=== PATIENT | female | born 1940 | race African-American/Black ===

== ENCOUNTER 2020-05-21 16:40 | Inpatient (IN) | payer OTHER, SELFPAY ==
[~2020-05-21] VITALS: Ht 162.6 cm; Wt 113.4 kg
[2020-05-21 16:46] VITALS: BP 153/113
[2020-05-21 17:27] LABS: BASOPHILS % (AUTO) 0.6 % (0.0-2.0); EOSINOPHILS # (AUTO) 0.1 K/uL (0-0.4); EOSINOPHILS % (AUTO) 0.9 % (0.0-4.0); HEMATOCRIT 38.5 % (36-48); HEMOGLOBIN 12.5 g/dL (12.0-16.0); LYMPHOCYTES # (AUTO) 1.6 K/uL (2.5-16.5); LYMPHOCYTES % (AUTO) 25.3 % (20.5-51.1); MEAN CORPUSCULAR HEMOGLOBIN 27 pg (27-31); MEAN CORPUSCULAR HGB CONC 33 g/dL (33-37); MEAN CORPUSCULAR VOLUME 83.4 fL (80-94); MONOCYTES # (AUTO) 0.4 K/uL (0.8-1.0); MONOCYTES % (AUTO) 6.8 % (1.7-9.3); NEUTROPHILS # (AUTO) 4.1 K/uL (1.8-7.7); NEUTROPHILS % (AUTO) 66.4 % (42.2-75.2); PLATELET COUNT (AUTO) 200 K/uL (140-450); RED BLOOD CELL COUNT(AUTO) 4.61 MIL/uL (4.20-5.40); RED CELL DISTRIBUTION WIDTH 15.8 % (11.6-13.7); WHITE BLOOD COUNT (AUTO) 6.1 K/uL (4.8-10.8)
[2020-05-21 17:42] LABS: ALBUMIN 3.6 g/dL (3.4-5.0); ANION GAP 12.9 (8-16); ASPARTATE AMINOTRANSFERASE 11 U/L (15-37); CARBON DIOXIDE 28.1 mmol/L (21-32); CHLORIDE 100 mmol/L (98-107); CREATININE 1.1 mg/dL (0.6-1.3); GLUCOSE 379 mg/dL (74-106); SODIUM SERUM 137 mmol/L (136-145); TOTAL BILIRUBIN 0.4 mg/dL (0.0-1.0); UREA NITROGEN, BLOOD 11 mg/dL (7-18)
[2020-05-21 18:05] LABS: PROTHROMBIN TIME 10.3 secs (10.8-13.4)
[2020-05-21] MEDS ORDERED: predniSONE 20 MG TAB PO ONE (19:00)
[2020-05-21] MEDS ORDERED: POTASSIUM CHLORIDE 40 MEQ, LIDOCAINE MPF 1% 25 MG in NACL 0.9% 250 ML IV PRN (19:50)
[2020-05-21] MEDS ORDERED: ONDANSETRON 4 MG/2 ML VIAL IM/IVP PRN (19:50)
[2020-05-21] MEDS ORDERED: MORPHINE SULFATE 2 MG/ML SYR IVP PRN (19:50)
[2020-05-21] MEDS ORDERED: MAG SULF 2000 MG/WATER PREMIX 50 ML IV PRN (19:50)
[2020-05-21] MEDS ORDERED: HYDROcodone/APAP 5/325 MG 1 TAB TAB PO PRN (19:50)
[2020-05-21] MEDS ORDERED: ACETAMINOPHEN 325 MG TAB PO PRN (19:50)
[2020-05-21] MEDS ORDERED: SODIUM PHOS / POTASSIUM PHOS 1 PKT PDR PO PRN (19:50)
[2020-05-21] MEDS ORDERED: DOCUSATE SODIUM 100 MG GELCAP PO PRN (19:50)
[2020-05-21] MEDS ORDERED: hydrALAZINE 10 MG TAB PO PRN (20:00)
[2020-05-21 20:19] LABS: MAGNESIUM 2.2 mg/dL (1.8-2.4); PHOSPHORUS 3.5 mg/dL (2.5-4.9)
[2020-05-21] MEDS ORDERED: ACYCLOVIR 200 MG CAP PO ONE (21:00)
[2020-05-21] MEDS ORDERED: ACYCLOVIR 200 MG CAP ONE (22:13)
[2020-05-21] MEDS: NACL 0.9% 1,000 ML IV SCH (23:11)
[2020-05-21] MEDS: ASPIRIN 81 MG TAB.CHEW PO SCH (23:11)
[2020-05-22] VITALS (7 sets, daily range): BP systolic 115–158; BP diastolic 79–99
[2020-05-22] MEDS: ACYCLOVIR 200 MG CAP PO SCH ×4 (00:19→21:00)
[2020-05-22] MEDS ORDERED: POLYVINYL ALCOHOL 1.4% OP 15 ML SOL OP SCH (09:00)
[2020-05-22] MEDS ORDERED: ASPIRIN 325 MG TABEC PO SCH (09:00)
[2020-05-22] MEDS: ASPIRIN 81 MG TAB.CHEW PO SCH (09:00)
[2020-05-22 09:42] LABS: BASOPHILS % (AUTO) 0.3 % (0.0-2.0); HEMATOCRIT 37.9 % (36-48); HEMOGLOBIN 12.4 g/dL (12.0-16.0); LYMPHOCYTES # (AUTO) 1.3 K/uL (2.5-16.5); LYMPHOCYTES % (AUTO) 18.5 % (20.5-51.1); MEAN CORPUSCULAR HEMOGLOBIN 27 pg (27-31); MEAN CORPUSCULAR HGB CONC 33 g/dL (33-37); MEAN CORPUSCULAR VOLUME 82.9 fL (80-94); MONOCYTES # (AUTO) 0.3 K/uL (0.8-1.0); MONOCYTES % (AUTO) 3.9 % (1.7-9.3); NEUTROPHILS # (AUTO) 5.3 K/uL (1.8-7.7); NEUTROPHILS % (AUTO) 77.3 % (42.2-75.2); PLATELET COUNT (AUTO) 202 K/uL (140-450); RED BLOOD CELL COUNT(AUTO) 4.57 MIL/uL (4.20-5.40); RED CELL DISTRIBUTION WIDTH 15.5 % (11.6-13.7); WHITE BLOOD COUNT (AUTO) 6.8 K/uL (4.8-10.8)
[2020-05-22 09:44] LABS: ANION GAP 15.1 (8-16); CARBON DIOXIDE 25.1 mmol/L (21-32); CHLORIDE 101 mmol/L (98-107); CREATININE 0.7 mg/dL (0.6-1.3); GLUCOSE 283 mg/dL (74-106); POTASSIUM 4.2 mmol/L (3.5-5.1); SODIUM SERUM 137 mmol/L (136-145); UREA NITROGEN, BLOOD 8 mg/dL (7-18)
[2020-05-22 11:49] LABS: CHOL/HDL RATIO 3.1 (1-4.5)
[2020-05-22] MEDS: POLYVINYL ALCOHOL 1.4% OP 15 ML SOL OP SCH ×2 (15:19→20:00)
[2020-05-22] MEDS ORDERED: predniSONE 20 MG TAB PO SCH (19:30)
[2020-05-22] MEDS: NACL 0.9% 1,000 ML IV SCH (19:50)
[2020-05-23] VITALS: BP 148/92
[2020-05-23 04:01] VITALS: BP 130/78
[2020-05-23 07:00] LABS: BASOPHILS % (AUTO) 0.2 % (0.0-2.0); HEMATOCRIT 36.5 % (36-48); HEMOGLOBIN 11.9 g/dL (12.0-16.0); LYMPHOCYTES % (AUTO) 16.7 % (20.5-51.1); MEAN CORPUSCULAR HEMOGLOBIN 27 pg (27-31); MEAN CORPUSCULAR HGB CONC 33 g/dL (33-37); MEAN CORPUSCULAR VOLUME 82.9 fL (80-94); MONOCYTES # (AUTO) 0.1 K/uL (0.8-1.0); MONOCYTES % (AUTO) 2.2 % (1.7-9.3); NEUTROPHILS # (AUTO) 4.9 K/uL (1.8-7.7); NEUTROPHILS % (AUTO) 80.9 % (42.2-75.2); PLATELET COUNT (AUTO) 191 K/uL (140-450); RED BLOOD CELL COUNT(AUTO) 4.41 MIL/uL (4.20-5.40); RED CELL DISTRIBUTION WIDTH 15.7 % (11.6-13.7); WHITE BLOOD COUNT (AUTO) 6.1 K/uL (4.8-10.8)
[2020-05-23 07:26] LABS: ANION GAP 12.4 (8-16); CHLORIDE 100 mmol/L (98-107); CREATININE 0.8 mg/dL (0.6-1.3); GLUCOSE 373 mg/dL (74-106); POTASSIUM 4.4 mmol/L (3.5-5.1); SODIUM SERUM 135 mmol/L (136-145); UREA NITROGEN, BLOOD 12 mg/dL (7-18)
[2020-05-23 08:00] VITALS: BP 160/100
[2020-05-23 09:00] VITALS: BP 146/86
[2020-05-23] MEDS: ACYCLOVIR 200 MG CAP PO SCH (10:02)
[2020-05-23] MEDS: ASPIRIN 81 MG TAB.CHEW PO SCH (10:02)
[2020-05-23] MEDS: POLYVINYL ALCOHOL 1.4% OP 15 ML SOL OP SCH ×3 (10:03→17:00)
[2020-05-23] MEDS ORDERED: ACYC400T PO (11:47)
[2020-05-23] MEDS ORDERED: PRED20TA5 PO (11:47)
[2020-05-23] MEDS ORDERED: XAR10 PO (11:51)
[2020-05-23 14:00] VITALS: BP 155/94
== END 2020-05-23 19:00 | disposition home or self-care (01) | DRG 74 ==
LOC: MED 16:40 → MTU 19:57
PROVIDERS: ADMIT Hospitalist; ATTEND Hospitalist
DX: G51.0 Bell's palsy (principal); E87.1 Hypo-osmolality and hyponatremia; Z20.822 Contact with and (suspected) exposure to COVID-19; R73.9 Hyperglycemia, unspecified; Z86.73 Personal history of transient ischemic attack (TIA), and cerebral infarction without residual deficits
CPT/HCPCS: 36415; 70450; 80048; 80053; 83036; 83735; 84100; 84484; 85025; 85610; 85651; 85730; 87081; 93005; 93880; 97110; 97161-GP; 99285; J1644; J7030; J7512